=== PATIENT | male | born 1960 | race Caucasian/White ===

== ENCOUNTER 2017-03-28 02:41 | Emergency (ER) | payer OTHER ==
[2017-03-28] MEDS ORDERED: LORazepam INJ* 2 MG/ML 1 ML VIAL IM ONE (03:05)
[2017-03-28] MEDS ORDERED: Ketorolac INJ* 60 MG/2 ML VIAL IM ONE (03:05)
[2017-03-28] MEDS ORDERED: LORazepam TAB(*) 1 MG PO ONE (03:55)
--- NOTE | 2017-03-28 04:01 | ED ---
Eve Lamar Alfonso, scribed for Rolly Beltre MD on 03/28/17 at 0314 . Neck Pain - HPI Summary HPI Summary: This patient is a 56 year old male presenting to [facility] for a stiff neck since 1199 yesterday. He reports numb shoulders, a sore chest, and myalgia. He rates the pain 9/10 in severity. Symptoms aggravated by movement and not alleviated by Ibuprofen. He states the past day has been spent on a tractor and doing strenuous field work. - History of Current Complaint Chief Complaint: EDNeckComplaint Stated Complaint: ARMS NUMB Time Seen by Provider: 03/28/17 03:02 Hx Obtained From: Patient Onset/Duration Of Injury/Symptoms: Hours - Since 119903/27/2016 Timing: Constant Onset/Duration: Sudden Onset, Started hours ago - 119903/27/2017 Severity Initially: Severe Severity Currently: Severe Pain Intensity: 9 Pain Scale Used: 0-10 Numeric Aggravating Factors: Movement Alleviating Factors: Other: - Not alleviated by ibuprofen - Allergies/Home Medications Allergies/Adverse Reactions: Allergies Allergy/AdvReac Type Severity Reaction Status Date / Time No Known Allergies Allergy Verified 12/11/15 12:57 PMH/Surg Hx/FS Hx/Imm Hx Sensory History: Denies: Hx Deafness Opthamlomology History: Denies: Hx Legally Blind Infectious Disease History: Denies: History Other Infectious Disease, Traveled Outside the [place] in Last 30 Days - Family History Known Family History: Negative: Cardiac Disease - Social History Alcohol Use: None Alcohol Amount: none in 25 years Substance Use Type: Reports: None Smoking Status (MU): Heavy Every Day Tobacco Smoker Type: Cigarettes Amount Used/How Often: 1/2 ppd Review of Systems Negative: Fever Positive: Myalgia, Other - Positive stiff neck, sore chest Positive: Numbness - numb shoulders All Other Systems Reviewed And Are Negative: Yes Physical Exam Triage Information Reviewed: Yes Vital Signs On Initial Exam: Initial Vitals Temp Pulse Resp BP Pulse Ox 99.2 F 64 18 143/72 97 03/28/17 02:43 03/28/17 02:43 03/28/17 02:43 03/28/17 02:43 03/28/17 02:43 Vital Signs Reviewed: Yes Appearance: Positive: Well-Appearing, Pain Distress - mild discomfort Skin: Positive: Warm Head/Face: Positive: Normal Head/Face Inspection Eyes: Positive: JOANNA ENT: Positive: Hearing grossly normal Neck: Positive: Supple, Other: - moderate paracervical spasm Respiratory/Lung Sounds: Positive: Clear to Auscultation, Breath Sounds Present Cardiovascular: Positive: RRR Abdomen Description: Positive: Nontender, Soft Bowel Sounds: Positive: Present Musculoskeletal: Positive: Strength/ROM Intact Neurological: Positive: Sensory/Motor Intact, Alert, Oriented to Person Place, Time, Normal Gait Psychiatric: Positive: Affect/Mood Appropriate - [place] Coma Scale Coma Scale Total: 15 Diagnostics - Vital Signs Vital Signs Temp Pulse Resp BP Pulse Ox 03/28/17 02:52 100.3 F 53 20 137/68 98 03/28/17 02:43 99.2 F 64 18 143/72 97 - Laboratory Lab Statement: Any lab studies that have been ordered have been reviewed, and results considered in the medical decision making process. Re-Evaluation - Re-Evaluation First Eval Change: Improved Neck Course/Dx - Diagnoses Provider Diagnoses: Cervical paraspinal muscle spasm Discharge - Discharge Plan Condition: Improved Disposition: HOME Prescriptions: Cyclobenzaprine TAB* [Flexeril 10 MG TAB*] 10 mg PO TID #30 tab Patient Education Materials: Muscle Spasm (ED) Referrals: Gaurang Lazo PA [Primary Care Provider] - 1 Week The documentation as recorded by the Eve german Alfonso accurately reflects the service I personally performed and the decisions made by , Rolly Beltre MD.
[2017-03-28 05:28] VITALS: BP 133/64
== END 2017-03-28 09:53 | disposition home or self-care (01) ==
LOC: ED 02:41
DX: M62.838 Other muscle spasm (principal)
CPT/HCPCS: 96372; 99282; A9270-GY; J1885; J2060

== ENCOUNTER 2017-04-02 20:59 | Emergency (ER) | payer OTHER ==
[2017-04-02 21:11] VITALS: BP 110/58
--- NOTE | 2017-04-02 22:10 | RAD ---
Indication: Burning sensation in RIGHT shoulder for one week without preceding injury. Comparison: No relevant prior exams available on the [facility] PACS for comparison. Technique: Internal and external rotation AP and scapular Y views RIGHT shoulder Report: Normal acromioclavicular and glenohumeral joint alignment. Mild acromioclavicular joint and glenohumeral joint osteophytosis. Negative for significant glenohumeral joint space narrowing. Negative for fracture, stigmata of calcific tendinopathy, or abnormal soft tissue contour. IMPRESSION: Mild acromioclavicular and glenohumeral joint osteoarthritis.
--- NOTE | 2017-04-02 22:11 | RAD ---
Indication: Worsening thoracic spine pain without proceeding injury. Comparison: No relevant prior exams available on the [facility] [place] for [place]. Technique: Upright AP and lateral views thoracic spine. Report: Slight RIGHT convex curve at the mid thoracic spine below the threshold for scoliosis. Normal thoracic kyphosis. No fracture or focal osseous lesion evident. Minimal vertebral endplate osteophytosis without significant disc space narrowing. Unremarkable paraspinal soft tissue contours. IMPRESSION: Mild degenerative spondylosis.
--- NOTE | 2017-04-02 22:14 | RAD ---
Indication: Worsening cervical spine pain without proceeding injury. Comparison: June 14, 2011 CT Technique: AP, open-mouth odontoid, lateral, and oblique views cervical spine. Report: Normal alignment from the craniocervical junction through the cervicothoracic junction. Negative for fracture. Congenital versus chronic fragmentation of the tip of the spinous process of C7 without change. Advanced C5-C6 disc space narrowing with associated mild vertebral endplate osteophytosis and reactive endplate sclerosis. Multilevel mild facet joint osteoarthritis. Uncinate process spurring results in osseous foraminal stenosis at C5-C6 greater on the LEFT than the RIGHT. Unremarkable prevertebral soft tissue contours. IMPRESSION: Advanced C5-C6 degenerative spondylosis with worsening compared with the [address] CT. Associated uncinate process spurring and LEFT greater than RIGHT osseous foraminal stenosis.
--- NOTE | 2017-04-02 22:18 | RAD ---
Indication: Worsening RIGHT hip pain. No preceding injury. Comparison: No relevant prior exams available on the [facility] PACS for comparison. Technique: Weightbearing AP pelvis and AP and frog-leg lateral views RIGHT hip. Report: Normally located RIGHT hip. Negative for hip or pelvic fracture. Unremarkable sacroiliac joints and pubic symphysis. The RIGHT hip is remarkable for mild increased depth with the acetabular floor projecting medial to the ilioischial line as well as mild axial joint space narrowing and mild to moderate osteophytosis with associated partial loss of femoral head sphericity, 2 cm subchondral cyst at the medial femoral head, and acetabular roof and femoral head subchondral sclerosis. Less prominent osteoarthritis at the LEFT hip. Small bone island at the LEFT femoral neck. Unremarkable soft tissue contours. IMPRESSION: 1. Kellgren and Luke grade 3 osteoarthritis of the RIGHT hip. 2. Kellgren and Luke grade 2 osteoarthritis of the LEFT hip.
[2017-04-02] MEDS: HYDROcodone/ACETAMIN 5-325 MG* 1 TAB PO ONE (22:32)
--- NOTE | 2017-04-02 22:34 | UC ---
Minor Trauma HPI - HPI Summary HPI Summary: NECK PAIN, RIGHT SHOULDER, RIGHT HIP PAIN; NECK PAIN SAN RADIATES DOWN SHOULDERS AND MIDBACK. OCCASIONAL NUMBNESS TINGLING IN ARMS. HAS BEEN VERY ACTIVE, BOUNCING ON TRACTORS. NO FEVER. NO KNOWN TRAUAM. - History of Current Complaint Chief Complaint: UCBackPain Stated Complaint: BACK AND NECK PAIN Time Seen by Provider: 04/02/17 21:17 Hx Obtained From: Patient Onset/Duration: Gradual Onset, Lasting Weeks, Still Present Severity Initially: Moderate Severity Currently: Moderate Aggravating Factor(s): Movement Alleviating Factor(s): Nothing - Risk Factors Penetrating Injury Risk Factors: Negative - Allergies/Home Medications Allergies/Adverse Reactions: Allergies Allergy/AdvReac Type Severity Reaction Status Date / Time No Known Allergies Allergy Verified 04/02/17 21:11 Home Medications: Home Medications Acetaminophen TAB* [Tylenol TAB*] 975 mg PO PRN 04/02/17 [History] Cyclobenzaprine TAB* [Flexeril 10 MG TAB*] 10 mg PO TID PRN 04/02/17 [History Confirmed 04/02/17] Ibuprofen TAB* [Advil TAB*] 600 mg PO PRN 04/02/17 [History] Naproxen TAB* [Naprosyn 250 mg TAB*] 500 mg PO PRN 04/02/17 [History] PMH/Surg Hx/FS Hx/Imm Hx Previously Healthy: Yes - Surgical History Surgical History: Yes Surgery Procedure, Year, and Place: HYDROCELE, HERNIA REPAIR AT AGE 3 - Family History Known Family History: Positive: Other - NONCONTRIBUTORY Negative: Cardiac Disease - Social History Occupation: Employed Full-time Lives: With Family Alcohol Use: None Alcohol Amount: none in 25 years Substance Use Type: None Smoking Status (MU): Current Every Day Smoker Type: Cigarettes Amount Used/How Often: 4-5 CIG/DAY Review of Systems Constitutional: Negative Skin: Negative Eyes: Negative ENT: Negative Respiratory: Negative Cardiovascular: Negative Gastrointestinal: Negative Genitourinary: Negative Motor: Negative Neurovascular: Negative Musculoskeletal: Arthralgia, Myalgia Neurological: Paresthesia Psychological: Negative All Other Systems Reviewed And Are Negative: Yes Physical Exam Triage Information Reviewed: Yes Appearance: Well-Appearing, No Pain Distress, Well-Nourished Vital Signs: Initial Vital Signs Temp 97 F 04/02/17 21:05 Pulse 104 06/29/17 21:05 Resp 20 04/02/17 21:05 BP 110/58 04/02/17 21:05 Pulse Ox 96 04/02/17 21:05 Vital Signs Reviewed: Yes Eye Exam: Normal ENT Exam: Normal ENT: Positive: Normal ENT inspection, Hearing grossly normal, TMs normal Dental Exam: Normal Neck exam: Normal Neck: Positive: Supple, Nontender, No Lymphadenopathy Respiratory Exam: Normal Respiratory: Positive: Chest non-tender, Lungs clear, Normal breath sounds, No respiratory distress, No accessory muscle use Cardiovascular Exam: Normal Cardiovascular: Positive: RRR, No Murmur, Pulses Normal Abdominal Exam: Normal Musculoskeletal: Positive: Strength Intact, ROM Intact, No Edema, Other: - PAIN RIGHT HIP; CERVICAL SPINE. RIGHT SHOULDER Neurological Exam: Normal Neurological: Positive: Alert Psychological Exam: Normal Skin Exam: Normal Minor Trauma Course/Dx - Differential Dx/Diagnosis Differential Diagnosis/HQI/PQRI: Sprain, Strain Provider Diagnoses: CERICAL RADICULOPATHY; C5-C6 SPONDYLOSIS, T-SPINE DEGENERATIVE SPONDYLOSIS; RIGHT AC/GLENOHUMERAL JOINT ARTHRITIS; BILATERAL HIP OSTEOARTHRIAT Discharge - Discharge Plan Condition: Stable Disposition: HOME Prescriptions: HYDROcodone/ACETAMIN 5-325 MG* [Selby 5-325 TAB*] 1 tab PO Q8H PRN #15 tab MDD three tabs PRN Reason: Pain Metaxalone TAB* [Skelaxin TAB*] 800 mg PO TID #15 tab Patient Education Materials: Osteoarthritis (ED), Cervical Radiculopathy (ED), Degenerative Disc Disease (ED), Shoulder Pain (ED), Hip Pain (ED), Neck Pain (ED ) Referrals: Gaurang Lazo PA [Primary Care Provider] - Demian Munroe MD [Medical Doctor] - Km Craig MD [Medical Doctor] - Additional Instructions: PHYSICAL THERAPY REFERRAL: You have been prescribed physical therapy. Treatments may include stretching, exercise, application of heat or cold, and other modalities. After an injury, PT can reduce swelling and pain. In recovery, PT is used to restore mobility and strength. Your specific treatment goals are: Reduction of Swelling (EGS, US, ice as needed) __x___ Pain Reduction (EGS, US, ice as needed) __x___ TENS Pack Fitting and Instruction Wound Hydrotherapy ___x__ Preservation of Mobility ___x__ Alevism of Mobility ___x__ Strength Alevism ___x__ Work or Sports Hardening This instruction sheet also serves as your PHYSICAL THERAPY REFERRAL! Please take it with you to the therapist, so he/she will be aware of your diagnosis and treatment plan. You may see the physical therapist of your choice for these treatments, but may wish to check with your insurance to be sure the provider you select is covered. It's important to see the doctor to whom you have been referred for follow up.
== END 2017-04-02 22:34 | disposition home or self-care (01) ==
LOC: UCEAST 20:59
DX: M54.12 Radiculopathy, cervical region (principal); M47.892 Other spondylosis, cervical region; M47.894 Other spondylosis, thoracic region; M19.011 Primary osteoarthritis, right shoulder; M16.0 Bilateral primary osteoarthritis of hip; Z72.0 Tobacco use
CPT/HCPCS: 72050; 72070; 99212; G0463

== ENCOUNTER 2017-04-03 12:40 | Inpatient (IN) | payer OTHER ==
[2017-04-03] MEDS ORDERED: NS 0.9% 1000 ML* 1,000 ML IV ONE (13:13)
[2017-04-03] MEDS ORDERED: Aspirin TAB* 325 MG PO ONE (13:13)
[2017-04-03 13:25] LABS: Hematocrit 37 % (42-52); Hemoglobin 12.2 g/dl (14.0-18.0); Mean Corpuscular HGB Conc 33 g/dl (31-36); Mean Corpuscular Hemoglobin 31 pg (27-31); Mean Corpuscular Volume 95 fL (80-94); Mean Platelet Volume 9 um3 (7.4-10.4); Red Blood Count 3.94 10^6/ul (4.0-5.4); Red Cell Distribution Width 13 % (10.5-15)
[2017-04-03 13:28] LABS: Add Diff/Slide Review? Slide Review Added; Comments Flag Yes
[2017-04-03 13:41] LABS: Albumin 3.1 g/dL (3.2-5.2); BUN/Creatinine Ratio 31.4 (8-20); Calcium 8.9 mg/dL (8.6-10.3); EGFR Non-African American 115.8 (>60); Globulin 3.1 g/dL (2-4); Total Bilirubin 1.3 mg/dL (0.2-1.0); Total Protein 6.2 g/dL (6.4-8.9)
[2017-04-03 13:43] LABS: Troponin I 0.02 ng/mL (<0.04)
[2017-04-03] MEDS ORDERED: Iohexol 350* (CONTRAST) 500 ML MDV IV ONE ×2 (13:49→15:30)
[2017-04-03 13:58] LABS: HDL Cholesterol 24.2 mg/dL
--- NOTE | 2017-04-03 14:32 | RAD ---
HISTORY: Right-sided weakness, stroke COMPARISONS: June 14, 2011 TECHNIQUE: Multiple contiguous axial CT scans were obtained of the head without intravenous contrast. FINDINGS: HEMORRHAGE/INFARCT: There is no hemorrhage or acute infarct. MASSES/SHIFT: There is no mass or shift. EXTRA-AXIAL SPACES: There are no extra-axial fluid collections. SULCI AND VENTRICLES: The sulci and ventricles are normal in size and position for the patient's stated age. CEREBRUM: There are no focal parenchymal abnormalities. BRAINSTEM: There are no focal parenchymal abnormalities. CEREBELLUM: There are no focal parenchymal abnormalities. VESSELS: The vessels are grossly normal. PARANASAL SINUSES: The paranasal sinuses are clear. ORBITS: The orbits are unremarkable. BONES AND SOFT TISSUE: No bone or soft tissue abnormalities are noted. OTHER: None IMPRESSION: NO ACUTE INTRACRANIAL PATHOLOGY.
[2017-04-03] MEDS ORDERED: Morphine INJ* 4 MG/ML 1 ML SYRINGE IV ONE (14:40)
[2017-04-03] MEDS ORDERED: Diazepam TAB(*) 5 MG PO ONE (14:41)
--- NOTE | 2017-04-03 14:43 | RAD ---
HISTORY: Right-sided weakness, stroke COMPARISONS: Head CT dated April 03, 2017 TECHNIQUE: Multiple contiguous axial CT scans were obtained of the head and neck After the administration of nonionic intravenous contrast timed to the systemic arterial phase of contrast enhancement. Coronal and sagittal multiplanar reformations are submitted for review. Multiple 3-D maximum intensity projection reconstructions are also submitted for review. FINDINGS: CTA NECK: AORTIC ARCH: There is a normal three-vessel branching pattern of the aortic arch. There is no ostial or proximal stenosis of the cephalic great vessels. RIGHT VERTEBRAL ARTERY: The right vertebral artery is patent along its course, without stenosis. LEFT VERTEBRAL ARTERY: The left vertebral artery is patent along its course, without stenosis. DOMINANCE: The vertebral arteries are codominant. RIGHT COMMON CAROTID ARTERY: The right common carotid artery is patent. The right carotid bifurcation occurs at C5-C6 RIGHT INTERNAL CAROTID ARTERY: There is no right internal carotid artery stenosis by NASCET criteria. RIGHT EXTERNAL CAROTID ARTERY: The right external carotid artery is unremarkable. LEFT COMMON CAROTID ARTERY: The left common carotid artery is patent. The left carotid bifurcation occurs at C4-C5 LEFT INTERNAL CAROTID ARTERY: There is no left internal carotid artery stenosis by NASCET criteria. LEFT EXTERNAL CAROTID ARTERY: The left external carotid artery is unremarkable. VENOUS CIRCULATION: The venous system is unremarkable. SALIVARY GLANDS: The parotid glands, submandibular glands, sublingual glands are normal. NASAL CAVITY/NASOPHARYNX: The nasal cavity and nasopharynx are normal. ORAL CAVITY/OROPHARYNX: The oral cavity is obscured by streak artifact from dental amalgam. The visualized oral cavity and oropharynx are unremarkable. LARYNGEAL APPARATUS/HYPOPHARYNX: The laryngeal apparatus and hypopharynx are normal. UPPER AIRWAY/UPPER ESOPHAGUS: The visualized upper airway and esophagus are normal. LUNG APICES: There is focal pleural thickening along the right anterior chest. This is incompletely evaluated on the current examination. THYROID GLAND: The thyroid gland is normal. LYMPH NODES: There is no lymphadenopathy by size criteria. BONES AND SOFT TISSUES: Mild degenerative changes are noted. There is enlargement and hypoattenuation of the longus colli musculature bilaterally CTA HEAD: INTRACRANIAL CIRCULATION: There is no aneurysm, vascular malformation, occlusion, or stenosis of the visualized intracranial circulation. The anterior communicating artery complex is clear. Bilateral posterior communicating arteries are identified. VENOUS CIRCULATION: The venous system is unremarkable. PERFUSION: There is no obvious parenchymal perfusion deficit. HEMORRHAGE/INFARCT: There is no hemorrhage or acute infarct. MASSES/SHIFT: There is no mass or shift. EXTRA-AXIAL SPACES: There are no extra-axial fluid collections. SULCI AND VENTRICLES: The sulci and ventricles are normal in size and position for the patient's stated age. CEREBRUM: There are no focal parenchymal abnormalities. BRAINSTEM: There are no focal parenchymal abnormalities. CEREBELLUM: There are no focal parenchymal abnormalities. PARANASAL SINUSES: The paranasal sinuses are clear. ORBITS: The orbits are unremarkable. BONES AND SOFT TISSUE: No bone or soft tissue abnormalities are noted. OTHER: There is no abnormal enhancement. IMPRESSION: 1. NO ANEURYSM, VASCULAR MALFORMATION, OCCLUSION, OR STENOSIS OF THE VISUALIZED INTRACRANIAL CIRCULATION.. 2. NO INTERNAL CAROTID ARTERY STENOSIS BY NASCET CRITERIA. 3. THERE IS FOCAL PLEURAL THICKENING OF THE RIGHT ANTERIOR CHEST, WITH EDEMA AND ENLARGEMENT OF THE LONGUS COLI MUSCULATURE BILATERALLY. THIS IS OF UNCLEAR ETIOLOGY BUT IS INCOMPLETELY EVALUATED ON THE CURRENT EXAMINATION. RECOMMEND FURTHER EVALUATION WITH CT OF THE CHEST CPT II Codes: 3100F
[2017-04-03] MEDS ORDERED: Potassium Chlor TAB* 20 MEQ TAB.ER PO ONE (15:15)
[2017-04-03] MEDS ORDERED: Acetaminophen TAB* 325 MG PO PRN (15:15)
[2017-04-03] MEDS ORDERED: Ondansetron INJ* 2 MG/ML VIAL IV PRN (15:15)
[2017-04-03] MEDS ORDERED: HYDROcodone/ACETAMIN 5-325 MG* 1 TAB PO PRN (15:23)
[2017-04-03] MEDS ORDERED: Cyclobenzaprine TAB* 10 MG PO PRN (15:23)
[2017-04-03] MEDS ORDERED: NS 0.9% 1000 ML* 1,000 ML IV SCH (15:30)
[2017-04-03 15:41] LABS: C Reactive Protein 251.81 mg/L (< 5.00)
[2017-04-03] MEDS ORDERED: NS 0.9% 1000 ML* 2,000 ML IV ONE ×2 (15:49→18:37)
[2017-04-03] MEDS: KCL 10 MEQ/50 ML IVPREMIX* 10 MEQ/50 ML BAG IV SCH ×2 (15:56→22:17)
[2017-04-03] MEDS ORDERED: cefTRIAXone VIAL(*) 1,000 MG in NS 0.9% 50 ML* 50 ML IVPB SCH (16:00)
[2017-04-03] MEDS: Diltiazem TAB* 30 MG PO SCH (16:07)
[2017-04-03 16:23] LABS: TSH (Thyroid Stimulating Horm) 0.39 mcIU/mL (0.34-5.60)
--- NOTE | 2017-04-03 16:39 | RAD ---
INDICATION: Apical pleural thickening noted on CT neck of the same day. COMPARISON: April 03, 2017 CT angiogram neck. TECHNIQUE: Multidetector CT images were obtained from the lung apices to the upper abdomen. Evaluation of the viscera is limited without IV contrast. REPORT: Mild bilateral apical pleural-parenchymal scarring. Small dependent RIGHT and trace LEFT pleural effusions with proportional atelectasis. No suspicious focal pulmonary lesions. Negative for pneumothorax. Negative for thoracic lymphadenopathy. Negative for cardiomegaly. Physiologic small volume of pericardial fluid. Normal diameter thoracic aorta. Limited images through the upper abdomen are remarkable for symmetric pyelographic phase contrast at the kidneys from the CT angiogram performed earlier the same day. At the level of the RIGHT first intercostal space anteriorly there is soft tissue thickening and innumerable punctate gas bubbles suspicious for myositis. No gross osseous erosion of the adjacent first or second ribs or clavicle evident. As noted on the CT angiogram neck exam of the same date there is thickening and decreased density in the longest coli muscles anterior to the cervical spine. No gross loculated abscess collection evident. IMPRESSION: 1. The constellation of findings is concerning for myositis at the RIGHT first intercostal space anteriorly. This may represent contiguous inflammation with the deep soft tissues of the neck given appearance of the longus coli muscles reference the CT angiogram neck exam performed prior to this exam. 2. Small dependent RIGHT and trace LEFT pleural effusions with associated atelectasis. Results discussed with Dr. Vieyra 04/03/2017 4:35 PM EDT
--- NOTE | 2017-04-03 16:58 | ED ---
Lon Lamar Alok, scribed for Juancarlos Vieyra MD on 04/03/17 at 1330 . Neurological HPI - HPI Summary HPI Summary: 56M presents at the ED (last here 3 days ago) with right sided weakness sent here from his PCP. Pt had new onset of A-fib at PCP. Pt was last seen at last night for right shoulder, right hip, neck and back pain. Pt had XRAYS done at which revealed osteoarthritis of those body parts. Pt presents today with inability to move his right leg accompanied by right leg and right arm numbness/ tingling. Pt states he has had right sided weakness for the last two days, worsening since this morning. Pt is right hand dominant. Pt notes some slurred speech appreciated as well as difficulty urinating. Pt notes neck pain but denies back pain. Pt denies SPARKS or visual loss. Pt also notes lack of sleep recently. Pt smokes tobacco but denies ETOH use. FMHx includes brother with stroke at age 35. - History of Current Complaint Chief Complaint: EDDysrhythmPalp Stated Complaint: WEAKNESS Time Seen by Provider: 04/03/17 12:48 Hx Obtained From: Patient, Medical Records Onset/Duration: Started days ago, Still Present, Worse Since - This morning Timing: Constant Onset Severity: Moderate Current Severity: Moderate Neurological Deficit Location: RUE, RLE Character: Numbness/Tingling, Motor Weakness, Impaired Speech Aggravating: Sleep Deprivation Alleviating: Nothing Associated Signs and Symptoms: Positive: Weakness, Impaired Speech, Numbness, Neck Pain/Stiffness. Negative: Visual Changes, Headache - Allergy/Home Medications Allergies/Adverse Reactions: Allergies Allergy/AdvReac Type Severity Reaction Status Date / Time No Known Allergies Allergy Verified 04/02/17 21:11 PMH/Surg Hx/FS Hx/Imm Hx Endocrine/Hematology History: Denies: Hx Diabetes Cardiovascular History: Denies: Hx Coronary Artery Disease, Hx Hypertension Sensory History: Denies: Hx Legally Blind, Hx Deafness Opthamlomology History: Denies: Hx Legally Blind - Surgical History Surgery Procedure, Year, and Place: HYDROCELE, HERNIA REPAIR AT AGE 3 Infectious Disease History: Denies: History Other Infectious Disease, Traveled Outside the [place] in Last 30 Days - Family History Known Family History: Positive: Other - NONCONTRIBUTORY Negative: Cardiac Disease - Social History Lives: With Family Alcohol Use: None Alcohol Amount: none in 25 years Substance Use Type: Reports: None Smoking Status (MU): Current Every Day Smoker Type: Cigarettes Amount Used/How Often: 4-5 CIG/DAY Review of Systems Negative: Blurred Vision Genitourinary: Other - Difficulty urinating Positive: Decreased ROM, Other - Neck pain. Negative: Back pain Positive: Weakness, Numbness, Slurred Speech. Negative: Headache All Other Systems Reviewed And Are Negative: Yes Physical Exam - Summary Physical Exam Summary: The patient is well-nourished in no acute distress and in no acute pain. The skin is warm and dry and skin color reflects adequate perfusion. HEENT: The head is normocephalic and atraumatic. The pupils are equal and reactive. Extraocular muscles intact. No facial droop. The conjunctivae are clear and without drainage. Nares are patent and without drainage. Mouth reveals moist mucous membranes and the throat is without erythema and exudate. The external ears are intact. The ear canals are patent and without drainage. The tympanic membranes are intact. Neck: Reproducible cervical spine tenderness at C5-C6. There are no carotid bruits. There is no neck vein distension. Respiratory: Chest is non-tender. Lungs are clear to auscultation and breath sounds are symmetrical and equal. Cardiovascular: Hear is irregular and tachycardic. There is no murmur or rub auscultated. There is no peripheral edema and pulses are symmetrical and equal. Abdomen: The abdomen is soft and non-tender. There are normal bowel sounds heard in all four quadrants and there is no organomegaly palpated. Musculoskeletal: Reproducible cervical spine tenderness at C5-C6. Extremities are non-tender with full range of motion. There is good capillary refill. There is no peripheral edema or calf tenderness elicited. Neurological: CN II-IV intact. No facial droop. No pronator drift right lower extremity or right upper extremity. Finger to nose good on both sides. Left lower extremity pronator drift. 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 Motor weakness appreciated in right upper extremity. No sensory deficit appreciated. No right lower extremity weakness apparent. Psychiatric: The patient has an appropriate affect and does not exhibit any anxiety or depression. Triage Information Reviewed: Yes Vital Signs On Initial Exam: The patient is well-nourished in no acute distress and in no acute pain. The skin is warm and dry and skin color reflects adequate perfusion. HEENT: The head is normocephalic and atraumatic. The pupils are equal and reactive. The conjunctivae are clear and without drainage. Nares are patent and without drainage. Mouth reveals moist mucous membranes and the throat is without erythema and exudate. The external ears are intact. The ear canals are patent and without drainage. The tympanic membranes are intact. Neck is supple with full range of motion and non-tender. There are no carotid bruits. There is no neck vein distension. Respiratory: Chest is non-tender. Lungs are clear to auscultation and breath sounds are symmetrical and equal. Cardiovascular: Hear is regular rate and rhythm. There is no murmur or rub auscultated. There is no peripheral edema and pulses are symmetrical and equal. Abdomen: The abdomen is soft and non-tender. There are normal bowel sounds heard in all four quadrants and there is no organomegaly palpated. Musculoskeletal: There is no back pain noted. Extremities are non-tender with full range of motion. There is good capillary refill. There is no peripheral edema or calf tenderness elicited. Neurological: Patient is alert and oriented to person, place and time. The patient has symmetrical motor strength in all four extremities. Cranial nerves are grossly intact. Deep tendon reflexes are symmetrical and equal in all four extremities. Psychiatric: The patient has an appropriate affect and does not exhibit any anxiety or depression. Vital Signs Reviewed: Yes Diagnostics - Vital Signs Vital Signs Pulse Resp Pulse Ox 04/03/17 14:50 18 04/03/17 14:19 96 18 94 04/03/17 13:25 96 04/03/17 13:11 21 - Laboratory Lab Results: Lab Results 04/03/17 04/03/17 04/03/17 Range/Units 13:15 13:15 13:15 WBC 14.0 H (3.5-10.8) 10^3/ul RBC 3.94 L (4.0-5.4) 10^6/ul Hgb 12.2 L (14.0-18.0) g/dl Hct 37 L (42-52) % MCV 95 H (80-94) fL MCH 31 (27-31) pg MCHC 33 (31-36) g/dl RDW 13 (10.5-15) % Plt Count 197 (150-450) 10^3/ul MPV 9 (7.4-10.4) um3 Neut % (Auto) 74.8 (38-83) % Lymph % (Auto) 12.2 L (25-47) % [place] % (Auto) 12.0 H (1-9) % Eos % (Auto) 0.8 (0-6) % Baso % (Auto) 0.2 (0-2) % Absolute Neuts (auto) 10.5 H (1.5-7.7) 10^3/ul Absolute Lymphs (auto) 1.7 (1.0-4.8) 10^3/ul Absolute Monos (auto) 1.7 H (0-0.8) 10^3/ul Absolute Eos (auto) 0.1 (0-0.6) 10^3/ul Absolute Basos (auto) 0 (0-0.2) 10^3/ul Absolute Nucleated RBC 0 10^3/ul Nucleated RBC % 0 ESR Pending INR (Anticoag Therapy) 1.48 H (0.89-1.11) Sodium 136 (133-145) mmol/L Potassium 3.0 L (3.5-5.0) mmol/L Chloride 95 L (101-111) mmol/L Carbon Dioxide 35 H (22-32) mmol/L Anion Gap 6 (2-11) mmol/L BUN 22 (6-24) mg/dL Creatinine 0.70 (0.67-1.17) mg/dL Est GFR ( Amer) 149.0 (>60) Est GFR (Non-Af Amer) 115.8 (>60) BUN/Creatinine Ratio 31.4 H (8-20) Glucose 112 H (70-100) mg/dL Lactic Acid (0.5-2.0) mmol/L Calcium 8.9 (8.6-10.3) mg/dL Magnesium 2.0 (1.9-2.7) mg/dL Total Bilirubin 1.30 H (0.2-1.0) mg/dL AST 84 H (13-39) U/L ALT 132 H (7-52) U/L Alkaline Phosphatase 230 H (34-104) U/L Troponin I 0.02 (<0.04) ng/mL C-Reactive Protein 251.81 H (< 5.00) mg/L Total Protein 6.2 L (6.4-8.9) g/dL Albumin 3.1 L (3.2-5.2) g/dL Globulin 3.1 (2-4) g/dL Albumin/Globulin Ratio 1.0 (1-3) Triglycerides 134 mg/dL Cholesterol 120 mg/dL LDL Cholesterol 69 mg/dL HDL Cholesterol 24.2 mg/dL TSH 0.39 (0.34-5.60) mcIU/mL 04/03/17 Range/Units 13:15 WBC (3.5-10.8) 10^3/ul RBC (4.0-5.4) 10^6/ul Hgb (14.0-18.0) g/dl Hct (42-52) % MCV (80-94) fL MCH (27-31) pg MCHC (31-36) g/dl RDW (10.5-15) % Plt Count (150-450) 10^3/ul MPV (7.4-10.4) um3 Neut % (Auto) (38-83) % Lymph % (Auto) (25-47) % [place] % (Auto) (1-9) % Eos % (Auto) (0-6) % Baso % (Auto) (0-2) % Absolute Neuts (auto) (1.5-7.7) 10^3/ul Absolute Lymphs (auto) (1.0-4.8) 10^3/ul Absolute Monos (auto) (0-0.8) 10^3/ul Absolute Eos (auto) (0-0.6) 10^3/ul Absolute Basos (auto) (0-0.2) 10^3/ul Absolute Nucleated RBC 10^3/ul Nucleated RBC % ESR INR (Anticoag Therapy) (0.89-1.11) Sodium (133-145) mmol/L Potassium (3.5-5.0) mmol/L Chloride (101-111) mmol/L Carbon Dioxide (22-32) mmol/L Anion Gap (2-11) mmol/L BUN (6-24) mg/dL Creatinine (0.67-1.17) mg/dL Est GFR ( Amer) (>60) Est GFR (Non-Af Amer) (>60) BUN/Creatinine Ratio (8-20) Glucose (70-100) mg/dL Lactic Acid 1.2 (0.5-2.0) mmol/L Calcium (8.6-10.3) mg/dL Magnesium (1.9-2.7) mg/dL Total Bilirubin (0.2-1.0) mg/dL AST (13-39) U/L ALT (7-52) U/L Alkaline Phosphatase (34-104) U/L Troponin I (<0.04) ng/mL C-Reactive Protein (< 5.00) mg/L Total Protein (6.4-8.9) g/dL Albumin (3.2-5.2) g/dL Globulin (2-4) g/dL Albumin/Globulin Ratio (1-3) Triglycerides mg/dL Cholesterol mg/dL LDL Cholesterol mg/dL HDL Cholesterol mg/dL TSH (0.34-5.60) mcIU/mL Result Diagrams: 04/03/17 13:15 04/03/17 13:15 Lab Statement: Any lab studies that have been ordered have been reviewed, and results considered in the medical decision making process. - Radiology Head CTA Xray Interpretation: Positive (See Comments) Radiology Interpretation Completed By: Radiologist - CT Brain CT CT Interpretation: Positive (See Comments) - IMPRESSION: NO ACUTE INTRACRANIAL PATHOLOGY. CT Interpretation Completed By: Radiologist - EKG 1243 Cardiac Rate: Other Rate - 92 bpm EKG Rhythm: Atrial Fibrillation ST Segment: Non-Specific - changes NIH Scale - NIH Scale Level of Consciousness: Alert/Keenly Responsive Ask Patient the Month and His/Her Age: Both Correct Ask Pt to Open/Close Eyes and Command Center Officer/Release Non-Paretic Hand: Both Correctly Best Gaze (Only Horizontal Eye Movement): Normal Visual Field Testing: No Visual Loss Facial Paresis-Pt to Smile & Close Eyes or Grimace Symmetry: Normal/Symmetrical Motor Function - Right Arm: No Drift-Holds 10 Seconds Motor Function - Left Arm: No Drift-Holds 10 Seconds Motor Function - Right Leg: Effort Against [place] Motor Function - Left Leg: No Drift-Holds 10 Seconds Limb Ataxia-Must be out of Proportion to Weakness Present: Present in One Limb Sensory (Use Pinprick to Test Arms/Legs/Trunk/Face): Normal Best Language (Describe Picture, Name Items): No Aphasia Dysarthria (Read Several Words): Slurs Some Words Extinction and Inattention: No Abnormality Total Score: 4 Course/Dx - Course Course Of Treatment: Spoke with Dr. Evans and RN INTERNSHIP Christiano Multani who will admit pt to [facility]. - Differential Dx Differential Diagnoses Neuro: Positive: Cerebrovascular Accident, Coronary Artery Disease, Dysrhythmia, Viral Syndrome, Other - infection, myositis - Diagnoses Provider Diagnoses: Right sided weakness, CVA (cerebral vascular accident), Radiculopathy, New onset atrial fibrillation - Physician Notifications Discussed Care Of Patient With: Justine Chung - Will admit pt to [facility] Time Discussed With Above Provider: 14:46 - Critical Care Time Critical Care Time: 30-74 min - 30 minutes Discharge - Discharge Plan Condition: Stable Disposition: ADMITTED TO [facility] documentation as recorded by the Lon german Alok accurately reflects the service I personally performed and the decisions made by me, Juancarlos Vierya MD.
[2017-04-03] MEDS ORDERED: Vancomycin(*) 1,250 MG in NS 0.9% 250 ML* 250 ML IVPB ONE (17:00)
--- NOTE | 2017-04-03 17:00 | RAD ---
Indication: Atrial fibrillation. Comparison: April 03, 2017 CT chest Technique: Upright AP 1523 hours Report: Mild increased density in the medial RIGHT upper lung zone corresponds with the region of soft tissue swelling noted at the RIGHT first intercostal space on CT. RIGHT apical pleural thickening. Clear lateral costophrenic angles with effusions noted on CT below threshold for detection on portable chest radiograph. Negative for pneumothorax or pneumomediastinum. Negative for cardiomegaly. Unremarkable central pulmonary vasculature. IMPRESSION: Mild increased density in the medial RIGHT upper lung zone corresponds with the region of soft tissue swelling noted at the RIGHT first intercostal space on CT. RIGHT apical pleural thickening
--- NOTE | 2017-04-03 17:03 | RAD ---
Indication: Elevated LFTs Comparison: Chest CT of the same date. Technique: RIGHT upper quadrant ultrasound. Report: Small RIGHT pleural effusion noted. Appropriate direction flow documented in the portal and hepatic veins. 23 cm liver is normal in echogenicity. Negative for focal hepatic lesions. Negative for intrahepatic biliary dilatation. 3.7 mm common bile duct. Adequately distended gallbladder with normal 2 mm wall is without pathologic finding. Negative for sonographic Flores's sign. The pancreatic tail is partially obscured due to bowel gas with the visualized pancreas unremarkable. Negative for ascites. 12.4 cm RIGHT kidney is unremarkable. IMPRESSION: 1. Small RIGHT pleural effusion. 2. Mild hepatomegaly. 3. Negative for gallbladder pathology or biliary dilatation.
[2017-04-03 18:37] LABS: Erythrocyte Sed Rate 65 mm/Hr (0-20)
[2017-04-03 19:09] LABS: Urine Bacteria Absent (Absent); Urine Bilirubin Negative (Negative); Urine Glucose Negative (Negative); Urine Nitrite Positive (Negative)
--- NOTE | 2017-04-03 21:34 | RAD ---
Indication: RIGHT side weakness. 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 Unable to feel RIGHT leg and foot. Comparison: No relevant prior exams available on the [facility] PACS for comparison. Technique: [employer] [place] 1.5 No [id number] with GEM suite. MRI brain without contrast. Report: Metallic artifact from a small metallic fragment in the frontal scalp noted. Diffusion series is negative for acute or subacute ischemia. Susceptibility series is negative for stigmata of hemosiderin deposition to indicate previous hemorrhage. Unremarkable cerebral sulci, ventricles, and basal cisterns. Mild burden of nonspecific small T2/flair hyperintensities within the periventricular and subcortical white matter of the cerebral hemispheres. Negative for intra or extra-axial fluid collection or mass lesion. Preserved major intracranial flow voids. Unremarkable orbital contents. Probable physiologic RIGHT unilateral nasal cavity mucosal engorgement. Negative for paranasal sinus fluid levels. Clear mastoid air spaces. Unremarkable calvarium and skull base. Unremarkable scalp. IMPRESSION: 1. Low burden of small nonspecific T2/flair hyperintensities within the periventricular and subcortical white matter of the cerebral hemispheres which may be seen in setting of migraine headaches or reflect sequela of previous inflammation or demyelinating disease in the appropriate clinical setting. 2. Negative for abnormal intra or extra-axial fluid collection or mass effect. 3. Negative for acute or subacute ischemia. Results discussed with KARO Multani 04/03/2017 9:20 PM EDT
[2017-04-03 21:45] VITALS: BP 123/57
--- NOTE | 2017-04-03 21:50 | RAD ---
Indication: Neck pain. Comparison: CPT angiogram neck of the same date. MRI brain of the same date. Chest CT of the same date. Technique: [employer] 1.5 No [id number] with GEM suite. Noncontrast MRI cervical spine limited to sagittal IR, sagittal T2, sagittal T1 series. The patient refused further MRI imaging due to normal is and discomfort. Report: There is T2 hyperintensity along the course of the longus colli muscles bilaterally corresponding with prior CT finding extending from the level of the C2-C3 disc space into the mediastinum at the caudal margin of the [id number] at the T2-T3 level. There is T2/ inversion recovery marrow edema with partial loss of T1 hyperintensity at C5, C6, and C7 highly suspicious for osteomyelitis given the clinical context. There is marked narrowing of the C5-C6 disc space with hyperintensity concerning for discitis. There is abnormal posterior vertebral epidural heterogeneously T2 / inversion recovery hyperintense thickening of the epidural space extending from C4 through C6 concerning for epidural abscess. There is resulting compression of the spinal cord with the cord measuring 5 mm AP at the C5 level compared with 7 mm at the unaffected C3 level. Resulting complete effacement of the ventral and dorsal CSF space. Smaller inflammatory epidural collection posteriorly. In the region of spinal cord compression there is increased signal within the cervical spinal cord extending from C4 through C6. There is increased signal in the interspinous ligaments from C2-C3 through T1-T2. IMPRESSION: 1. 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 Associated increased T2 signal within the cord which may be secondary to compression or reflect contiguous infection involving the cord. Contiguous inflammation within the interspinous ligaments from C2-C3 through T1-T2. 2. No pathologic fracture evident. 3. Based on correlation with the CT chest exam of the same date there is contiguous extension of the inflammatory process to the RIGHT anterior chest wall with phlegmon and gas bubbles at the RIGHT first intercostal space. Results discussed with KARO Multani 04/03/2017 9:20 PM EDT. Emergent neurosurgical consultation/facility transfer planned.
[2017-04-03] MEDS ORDERED: KCL premix 10MEQ/50 ML x 2 BAGS IV SCH (22:00)
--- NOTE | 2017-04-03 22:50 | CONS ---
CC: AMOR Duggan NEUROLOGY CONSULTATION REPORT: DATE OF CONSULT: 04/03/17 REQUESTING PROVIDER: Christiano Multani NP PRIMARY CARE PROVIDER: AMOR Duggan REASON FOR CONSULT: Right-sided weakness, possibly stroke. HISTORY OF PRESENT ILLNESS: The patient is a 56-year-old right-handed male, started to have experiencing pain in the neck and shoulder about a week ago. He came to the ED on 03/28/17 with a chief complaint of stiff neck and pain in the shoulder, as well as some tenderness in the chest and myalgia. 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 As there was nothing significantly found in the exam, he was diagnosed with cervical paraspinal muscle spasm and was sent home with Flexeril. He had another ED visit on the 02 of April with pain in the right shoulder, head and neck and some numbness in the hands. He reports having fever in the past few days as well, but di not actually measure his temperature at home. He had an imaging of the neck spine during that visit which showed some degenerative changes and C5-C6 spondylosis. Based on those findings, he was sent home with Artemas. Since about Thursday night he started to feel weak in the right arm and leg, and also appeared to have a bit of slurred speech per his . He came to the ED today and was found to have a new-onset AFib. Then neurology was called because of concern of acute stroke in the setting of Afib. PAST MEDICAL HISTORY: No significant past medical history. PAST SURGICAL HISTORY: History of hernia repair in childhood and also history of hydrocele. HOME MEDICATIONS: He does not use any medication regularly other than the Artemas and Flexeril that were given to him in the past week. ALLERGIES: No known drug allergies. FAMILY HISTORY: Father has history of coronary artery disease and diabetes. Mother also had no history of neurological disorder. Brother has history of stroke at age 35. SOCIAL HISTORY: He is a heavy smoker, smoking half a pack per day for many years. No history of alcohol or drugs. The patient is a eagle. REVIEW OF SYSTEMS: Complete review of systems was performed and other than what is mentioned above is positive for difficulty with urination (hesitation) in the past few day PHYSICAL EXAM: Blood pressure is 136/84, temperature 100, respiratory rate 18, and pulse rate 84. The patient is awake, alert, and oriented x3. Pupils are symmetric and reactive to light. Extraocular movements are intact. Visual mann are intact by confrontation. Face is symmetric. Palate elevates upwards. V1 to V3 is intact to light touch and pinprick. Speech is fluent and intelligible. No clear dysarthria noted; however, the patient's thinks that he is slightly dysarthric. The strength is 5/5 throughout other than the right arm which is 4/5 proximally and distally, and leg also 4/5 in the right proximal, and distal is 5/5. Sensory exam is intact to light touch and pinprick in the upper and lower extremities and is symmetric, and decreased to vibration bilaterally in the lower extremities below the knees. There is no clear sensory level in trunk. Deep tendon reflexes are 1+ in the left upper extremity on the left side and not detectable on the right and is 3+ in the knees bilaterally. DIAGNOSTIC STUDIES/LAB DATA: WBC 14, hemoglobin 12.2, hematocrit 37, platelets 197. Sodium 136, potassium 3, BUN 22, and creatinine is 0.7. AST 84, ALT 32. INR 1.48. Imaging: A CT of the head shows no intracranial pathology. A CTA of the head shows no areas of vascular malformation, occlusion, or stenosis. No internal carotid artery stenosis. There is focal pleural thickening of the right anterior chest with edema and enlargement of the longus colli musculature bilaterally. This is of unclear etiology, but this is incompletely evaluated on the current examination. A CT chest is recommended. X-ray of the hip and pelvis shows osteoarthritis of the right and left hip. A cervical spine x-ray showed advanced C5-C6 degenerative spondylosis with worsening compared with [address] CT. ASSESSMENT AND PLAN: A 56-year-old right-handed male with history of neck pain and muscle pain since last week, with reportedly fever, presented with worsening of his symptoms and now with right-sided weakness since about 2 days ago. The mentions that he also has slurred speech. At this point, probably he may have sustained a lacunar (internal capsule?) stroke; however, the etiology of his stroke is unclear. Considering the fever and white blood cells, he may have a source of infection such as endocarditis with septic emboli. Other sources of infection need to be investigated. He needs an MRI of the brain and C-spine considering the pain in the shoulder ; however, since he has received a CT angiogram with contrast, cannot have the MRI with contrast and will further proceed with MRI of the brain without contrast. If that is unremarkable, may consider an LP at some point. [id number]/CPS #: [id number] MTDD
--- NOTE | 2017-04-03 23:06 | HP ---
CC: SISSY Koenig; Dr. Falcon; Dr. Parrish; Dr. Hua HISTORY AND PHYSICAL: DATE OF ADMISSION: 04/03/17 PRIMARY CARE PROVIDER: SISSY Koenig. CONSULTING NEUROLOGIST: Dr. Falcon. CONSULTING SCHEDULING CLERK: Dr. Parrish. CONSULTING INFECTIOUS DISEASE SPECIALIST: Dr. Hua. ATTENDING PHYSICIAN WHILE IN THE HOSPITAL: Justine Chung DO (report is being dictated by Christiano putnam NP) CHIEF COMPLAINT: Neck pain. HISTORY OF PRESENT ILLNESS: Mr. Shaw is a 56-year-old male patient, previously healthy; however, o keyla the last week, he has had neck pain, starting in the right side of his neck into his right chest and also having some numbness to bilateral arms. He says the pain has gotten progressively worse t o the point where last Thursday he did go to the ER and was given muscle relaxants. 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 The Flexeril seemed to work well for him, he was discharged. Unfortunately, the pain progressed. He said he went to urgent care yesterd ay and today it was noticed that his arms were much more weak, particularly his right arm and his ri ght leg and there was question of slurred speech. While at the primary care office today, it was no christina per the patient that his heart rate was irregular. He denies any palpitations or chest pain. T here is question of fevers off and on throughout the last week, but it were unsure. He does admit t o having again pain in his neck and he does admit to having pain in his right hip. He came into the ER after being referred here because of the new onset AFib for further evaluation. He currently ag ain denies having any chest pain, denies feeling short of breath, denies having any abdominal pain. He says that he may have had fevers, denies any nausea or vomiting, but he definitely knows his rig ht hand is weaker than his left hand and he also has right leg weakness. The and the patient rajeev dominguez noticed he has been dragging his right leg. He was concerned obviously because of these finding s. He was evaluated by Dr. Sewell here in the ER. There was concern for possible CVA, new onset AF ib, in addition to this it was noted he had elevated white count, elevated LFTs. Because of these m ultiple findings, we were asked to evaluate for admission. PAST MEDICAL HISTORY: Was denied with the exception of acute cervical radiculopathy, which was rece ntly diagnosed just a week ago. PAST SURGICAL HISTORY: 1. He has had a hernia repair. 2. He has had a hydrocele. FAMILY HISTORY: His brother had a CVA at 35. His mother had a history of leukemia and his father i s healthy. SOCIAL HISTORY: He was about a half a pack a day smoker for 40 years. He does not drink alcohol. He is a eagle. Surrogate decision maker is his , Yarely. ALLERGIES TO MEDICATIONS: Include no known drug allergies. MEDICATIONS: His home meds include: 1. Naproxen 500 mg p.o. b.i.d. as needed. 2. Skelaxin 800 mg p.o. t.i.d. 3. Ibuprofen 600 mg every 6 hours as needed. 4. [place] 1 tablet p.o. every 8 hours as needed. 5. Flexeril 10 mg p.o. t.i.d. 6. Tylenol 975 every 6 hours as needed. REVIEW OF SYSTEMS: There is no documented fever with the exception here he did have one over 100, h e does admit subjectively having fevers. He denies having any chest pain. There is no orthopnea. There is no nocturnal dyspnea. He denies having any double vision. There is no ear discharge. He denied having any rhinorrhea. No sore throat. No thyroid enlargement. No abdominal pain. No naus ea, no vomiting. No dysuria, no frequency. No seizure. There was no loss of consciousness. Revie w of 14 systems completed, all others negative. PHYSICAL EXAMINATION GENERAL: At this time, Mr. Shaw is a 56-year-old male patient. He appears to be well nourished, w ell developed. He does not appear to be in any acute distress. VITAL SIGNS: Reveal blood pressure 136/84, pulse 84, respirations 18, O2 sat 94% on room air, and t emperature of 100. HEENT: Head is atraumatic and normocephalic. Eyes: EOMs are intact. Sclerae are anicteric and no t pale. Throat: Oral mucosa appears to be moist. No oropharyngeal erythema. NECK: Supple. LUNGS: Clear to auscultation bilaterally. No wheezes, rales, or rhonchi. HEART: Heart sounds S1 and S2. Irregularly irregular rate. No murmurs, rubs or gallops. ABDOMEN: Soft, flat, nontender. Bowel sounds are present. EXTREMITIES: Pulses 2+ throughout. He has significant weakness noted to the right upper extremity, right lower extremity compared to the left side. NEUROLOGIC: He is awake. He is alert. Speech according to the is slurred, it sounds clear t o me. He has no trouble with word finding. 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 He is unable to lift the leg off the bed at this point, but he has no pain with passive range of motion. Spine was palpated and he has no cervical spine tenderness or lumbar spine tenderness or thoracic spine tenderness. No other gross focal deficits were noted. No facial droop . SKIN: Grossly intact. DIAGNOSTIC STUDIES/LAB DATA: Labs today revealed WBC of 14.0, RBC of 3.94, hemoglobin 12.2, hemato crit of 37, platelet count 197. INR 1.48. Sodium was 136, potassium 3.6, chloride 95, bicarb 35, B UN 22, creatinine of 0.70, glucose 112, lactic 1.2, calcium 8.9, mag 2.0. Total bili 1.3, AST 84, A LT 132, alk phos 230. Troponin 0.02. CRP 251. Albumin of 3.1. He did have a brain CT obtained today, which revealed no acute intracranial pathology. He did have a head CTA and of the neck as well, which revealed, impression: No aneurysm, vascular malformation, occlusion, or stenosis of the visualized intracranial circulation, no internal carotid artery steno sis by NASCET criteria. There is focal pleural thickening on the right anterior chest with edema, e nlargement in the longus colli musculature bilaterally. This is unclear etiology, but is incomplete ly evaluated on the current examination. He had an EKG obtained today as well, I do not have previo us for comparison, but it does show atrial fibrillation with ST depression in V4, V5 and V3 as well, but again no previous for comparison, has an AFib with a rate of 92. Old medical records were revi ewed. ASSESSMENT AND PLAN: Mr. Shaw is a 56-year-old male patient coming into the ER today with multiple complaints, particularly neck pain, shoulder pain and now right- sided weakness and slurring of the words, and new onset atrial fibrillation. He will be admitted under inpatient status for: 1. Atrial fibrillation. At this point, it is rate controlled. I am going to put him on diltiazem 30 every 6 hours with hold parameters and I am going to hold off on anticoagulation for the time bowen agustin. 2. Right-sided weakness: Concern for possible cerebrovascular accident; however, it could be a cer vical radiculopathy. I did touch base with Dr. Falcon. Plan will be go ahead and continue an baby aspirin for now, get an echo with bubble study, go ahead and get neuro checks, place him on telemet ry, we will get an MRI of the brain and of the neck. 3. Elevated white cell count, pleural thickening, and elevated C-reactive protein. The etiology of this is unclear. I did touch base with Dr. Hua. The patient's CRP is 250. He has a low grade fever now of 100. We are going to kang culture him, put him on broad-spectrum antibiotics in the fo rm of Rocephin and vancomycin, get a CT of the chest as certainly he could have endocarditis and may be having septic emboli causing these focal findings. But at this point, again we will get in touc h with Dr. Hua. We will be evaluating him, we will kang culture the patient and we will continu e to monitor. 4. Elevated liver function tests, Again, uncertain etiology. The patient says he does not drink. I am going to get an ultrasound of upper quadrant and we will repeat his LFTs in the morning and we will follow. 5. Neck pain. At this point, I have ordered p.r.n. Flexeril for him as this has helped in the past . 6. Hypokalemia. We will replace this. 7. DVT prophylaxis: He will be placed on heparin subcu. 8. Code status: He is full code. 9. Fluids, electrolytes, and nutrition. He is n.p.o. because I did touch base with Dr. Silverio to s ee if maybe we could do a biopsy of this pleural thickening or of the musculature that has the edema to see if this can help our diagnostic process. He is n.p.o. for the time being. I will give him 2 L of fluid though and the normal saline at 100 an hour. TIME SPENT: Time spent on the admission was approximately 90 minutes, greater than half the time wa s spent [id number] with the patient obtaining my history and physical; other half of the time was spent going over the plan of care with the patient and implementing the plan of care. I did discuss the plan of care with my attending, Dr. Chung; she is in agreement. CHRISTIANO DICKEY, KARO [id number]/[facility] #: [id number]
[2017-04-04] MEDS: Diltiazem TAB* 30 MG PO SCH (00:01)
[2017-04-04] MEDS: KCL 10 MEQ/50 ML IVPREMIX* 10 MEQ/50 ML BAG IV SCH ×2 (00:02→00:03)
--- NOTE | 2017-04-04 00:36 | TRS ---
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 HISTORY OF PRESENT ILLNESS AND HOSPITAL COURSE: I refer you to my H and P dictated earlier today. In short, Mr. Shaw is a 56-year-old male patient that presented to our ER today with complaints of neck pain about a week ago that has gotten progressively worse and shoulder pain. He did have bilateral numbness to the upper extremities, but he noticed over the last couple of days that he was getting in his right arm and then today he could barely lift his right leg off his bed. He did seek care at Urgent Care and the ER earlier this week. 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 However, the day he went for followup with his primary, he was found to be in AFib and because of the weakness on the right side, there was concern for stroke and he was sent to the ER. He was evaluated by myself and by Dr. Falcon, and there was concern that this could be stroke or could be other etiologies. It was noted that he had a white count of 14 and ESR 65 and a CRP of 251. He did spike a fever here and it was noted on initial imaging particularly the CTA of the head and neck which was done because there was concern for stroke, there did appear to be a focal pleural thickening at the base of the right anterior chest with edema, enlargement of the longus colli musculature bilaterally of unclear etiology. CT of the chest was recommended on that study and a CT of the chest was obtained which showed conflicts of findings concerning for myositis of the right first intercostal space anteriorly. This may represent contiguous inflammation with the deep soft tissues of the neck given appearance of the longus colli muscles. Refer to CT neck exam. Later tonight, he had an MRI of the cervical spine which ultimately showed a C5-6 osteomyelitis with cord compression and an epidural abscess and there was contiguous inflammation within the ligaments from C3 through T1 to T2. He underwent an MRI of the cervical spine because of his complaints, which ultimately showed osteomyelitis and diskitis at C5-6 and additional osteomyelitis at C7, the anterior and posterior epidural abscess with significant spinal cord compression, associated increased T2 signal with the cord which may secondary to compression or reflective of contiguous inflammation and infection involving the cord. Based on the correlation of the chest exam on the same date, there was contiguous extension of inflammatory process at the anterior chest wall with phlegmon and gas bubbles at the right first intercostal space. At this point, I was notified we did have Neurosurgery road monkey, Dr. Moreno from [facility], who I did call and he recommended transferring the patient down to [facility], so that he could first thing evaluate the patient tonight and possibly take him for a decompression. He did request at that point that I touch base with the hospitalist there, who accepted the patient. Ultimately, it was Dr. Cadet from [facility], and at this point, he was accepted. We will place the patient in a cervical collar. There was no acute fracture noted on the MRI. We will place him in cervical collar and head of the bed at 30 degrees and bed rest until he was evaluated. In the time being here though he did receive 4 L of IV fluids. He was on antibiotics. Blood cultures were sent and the patient again will be transferred under the care to [facility] per the recommendations of Neurosurgery road monkey, Dr. Moreno, and Dr. Cadet was the accepting hospitalist. PHYSICAL EXAMINATION: On transfer reveals vital signs, blood pressure 123/57 with a pulse of 82; respirations 18; his O2 sat was 91% on 2 L, he is now 96%; his temperature was 99.8. He appears to be in a rate controlled AFib. General : At this time, Mr. Shaw is a 56-year-old male patient. He is well-nourished , well- developed, does not appear to be in any acute distress. HEENT: Head atraumatic, normocephalic. Eyes: EOMs are intact. Sclerae anicteric, not pale. Throat: Oral mucosa appears to be moist. No oropharyngeal erythema. Neck: Supple. Lungs: Clear to auscultation. No wheezes, rales, or rhonchi. Heart: Sounds, S1, S2. Irregularly irregular rate. No murmurs, rubs, or gallops. Abdomen: Soft, flat, nontender. Bowel sounds are present. Extremities: Pulses 2+ throughout. He does have weakness noted to the right arm. He is considerably more weak than the left side. He can raise the arm on the right leg, though he has a significant amount of weakness. He can barely lift the leg off the bed but sensation is intact. No other focal deficits. DIAGNOSTIC STUDIES/LAB DATA: On discharge, WBC of 14.0, RBC of 3.94, hemoglobin 12.2, hematocrit of 37, and platelet count of 197. INR 1.48. His sodium was 136, potassium 3.0, chloride of 95, bicarb 35, BUN 22, creatinine 0.70, glucose of 112, lactate 1.2, calcium 8.9, mag 2.0. Total bili 1.3, AST 84 , ALT 132, alk phos 230. Troponin 0.02. His CRP was 251. Urine showed positive nitrites, trace leukocyte esterase, 1+ wbc's. He had multiple imaging here in our hospital starting out with CT of the brain showed no acute intracranial pathology. He had a head CTA which showed no aneurysm, vascular malformation, occlusion, or stenosis visualized in the intracranial circulation. No internal carotid artery stenosis by NASCET criteria. There is a focal pleural thickening of the right anterior chest with edema and enlargement of the longus colli musculature bilaterally. This is of unclear etiology but is incompletely evaluated on the current examination. Recommend further evaluation with CT of the chest. He had an abdominal ultrasound for the elevated LFTs which revealed small right pleural effusion and mild hepatomegaly, negative for gallbladder pathology or biliary dilatation. He had a brain MRI obtained today as well which revealed low burden of small nonspecific T2/FLAIR hyperdensities within the periventricular and subcortical white matter on the cerebral hemisphere which may be seen in the setting of migraine headaches or reflected previous inflammation or demyelinating disease in the appropriate clinical setting. Negative for abnormal intra or extra axial fluid collection or mass effect. Negative for acute or subacute ischemia. He did have a cervical spine MRI which showed incomplete MRI of the cervical spine remarkable for deep soft tissue infection on the neck, osteomyelitis, diskitis at C5-6 and probable addition of osteomyelitis at C7, anterior and posterior epidural abscess with significant spinal cord compression, associated T2 signal within the cord which may be secondary to compression or reflected contiguous infection involving the cord, contiguous inflammation within the interspinous ligaments from C2-3 through T1 and T2. No pathological fracture evident. Based on the correlation with CT chest exam the same day, there is contiguous extension of the inflammatory process to the right anterior chest wall with phlegmon and gas bubbles at the right first intercostal space. He did have a chest x-ray obtained today as well which showed mild increased density in the medial right upper lung zone corresponds with the region of the soft tissue swelling noted at the right first intercostal space on CT, right apical pleural thickening and he had a CT of the chest as well, which revealed constellation of findings. It is concerning for myositis at the right first intercostal space anteriorly. This may represent contiguous inflammation with the deep soft tissue of the neck given appearance of the longus colli muscle reference to the CT angio neck exam performed prior to this exam. Small dependent right and trace left pleural effusions with associated atelectasis. CONDITION ON TRANSFER: Stable. TIME SPENT: On the transfer was approximately 60 minutes, greater than half of the time was spent [id number] with the patient going over the transfer plan, other half time time spent coordinating the care. I did discuss the plan with my attending, Dr. Mcrae; he is in agreement. FRANCOIS DICKEY, KARO [id number]/[facility] #: [id number] KEVIN
[2017-04-04] MEDS ORDERED: Vancomycin(*) 1,000 MG in NS 0.9% 250 ML* 250 ML IVPB SCH (01:00)
[2017-04-04] MEDS ORDERED: Aspirin EC Low Dose* 81 MG TAB.EC PO SCH (09:00)
[2017-04-05] MEDS ORDERED: Vancomycin Trough Check NOTE FOLLOW UP ONE (08:30)
== END 2017-04-03 23:44 | disposition short-term general hospital (02) | DRG 49 ==
LOC: ED 12:40 → MEDTELE 15:09
PROVIDERS: ADMIT Hospitalist; ATTEND Hospitalist
DX: G06.1 Intraspinal abscess and granuloma (principal); M46.22 Osteomyelitis of vertebra, cervical region; J90 Pleural effusion, not elsewhere classified; I48.91 Unspecified atrial fibrillation; G95.29 Other cord compression; R16.0 Hepatomegaly, not elsewhere classified; J98.11 Atelectasis; F17.210 Nicotine dependence, cigarettes, uncomplicated; E87.6 Hypokalemia; R79.89 Other specified abnormal findings of blood chemistry; J92.9 Pleural plaque without asbestos; M46.42 Discitis, unspecified, cervical region; Z82.3 Family history of stroke; Z80.6 Family history of leukemia; Z82.49 Family history of ischemic heart disease and other diseases of the circulatory system; Z83.3 Family history of diabetes mellitus; Z82.0 Family history of epilepsy and other diseases of the nervous system
CPT/HCPCS: 36415; 70450; 70496; 70498; 70551; 71010; 71250; 72141; 76705; 80053; 80061; 81003; 81015; 83605; 83735; 84443; 84484; 85025; 85610; 85652; 86140; 87040; 87077; 87150; 87186; 87205; 93005; A9270-GY; J0696; J2270; J3370; J3480

== ENCOUNTER 2018-08-18 12:41 | Observation (INO) | payer OTHER ==
[2018-08-18] MEDS ORDERED: Clindamycin 600 MG IVPREMIX(* 600 MG/50 ML SDV IV ONE (13:15)
--- NOTE | 2018-08-18 13:18 | ED ---
Throat Pain/Nasal Congestion - HPI Summary HPI Summary: The pt is a 58 y/o male presenting to [facility] c/o L jaw pain for 2 weeks worsened 2 days ago. He notes dental pain (for 2 weeks), dysphagia (since 1 day ago), difficulty opening his mouth, a swollen L nodule under the L jaw, and sore throat. He denies fevers, neck pain, and ear pain. The pt saw his dentist 6 day ago and had an X-ray performed. The pain is rated 8/10 in severity. - History of Current Complaint Chief Complaint: EDDentalPain Time Seen by Provider: 08/18/18 13:05 Hx Obtained From: Patient Onset/Duration: Lasting Weeks - 2 weeks, Still Present, Worse Since - 2 days ago Severity: Severe Associated Signs And Symptoms: Positive: Dysphagia - Allergies/Home Medications Allergies/Adverse Reactions: Allergies Allergy/AdvReac Type Severity Reaction Status Date / Time No Known Allergies Allergy Verified 08/18/18 09:49 Home Medications: Home Medications Felodipine (NF) [Plendil (NF)] 5 mg PO DAILY 08/18/18 [History Confirmed ] Ramipril CAP* [Altace CAP*] 5 mg PO DAILY 08/18/18 [History Confirmed 08/18/18] PMH/Surg Hx/FS Hx/Imm Hx Previously Healthy: No - Mhx of sepsis requiring hospitalization Endocrine/Hematology History: Denies: Hx Diabetes Cardiovascular History: Denies: Hx Coronary Artery Disease, Hx Hypertension, Hx Pacemaker/ICD Sensory History: Denies: Hx Contacts or Glasses, Hx Legally Blind, Hx Deafness, Hx Hearing Aid Opthamlomology History: Denies: Hx Contacts or Glasses, Hx Legally Blind Psychiatric History: Denies: Hx Panic Disorder - Cancer History Cancer Type, Location and Year: None reported - Surgical History Surgery Procedure, Year, and Place: HYDROCELE, HERNIA REPAIR AT AGE 3 Infectious Disease History: No Infectious Disease History: Denies: History Other Infectious Disease, Traveled Outside the [place] in Last 30 Days - Family History Known Family History: Positive: Other - NONCONTRIBUTORY Negative: Cardiac Disease - Social History Occupation: Employed Full-time Lives: Dormitory/Roommates - Significant other Alcohol Use: None Alcohol Amount: none in 25 years Substance Use Type: Reports: None Smoking Status (MU): Current Every Day Smoker Type: Cigarettes Amount Used/How Often: 4-5 CIG/DAY Review of Systems Negative: Fever ENT: Negative - Neck pain Positive: Dental Pain, Sore Throat, Other - Positive: dysphagia (since 1 day ago ), difficulty opening his mouth, a swollen L nodule under the L jaw. Negative: Ear Ache All Other Systems Reviewed And Are Negative: Yes Physical Exam - Summary Physical Exam Summary: Appearance: Well-appearing, Well-nourished, lying in bed comfortable Skin: Warm, dry, no obvious rash Eyes: sclera anicteric, no conjunctival pallor ENT: mucous membranes moist, No deformations of the gum line, Firm mass in the L submandibular space Neck: deferred Respiratory: No signs of respiratory distress Cardiovascular: Appears well perfused, pulses are nml Abdomen: deferred Musculoskeletal: Moving all 4 extremities without obvious discomfort Neurological: Awake and alert, mentation is normal, speech is fluent and appropriate Psychiatric: affect is normal, does not appear anxious or depressed Triage Information Reviewed: Yes Vital Signs On Initial Exam: Initial Vitals Temp Pulse Resp BP Pulse Ox 98.6 F 68 15 151/82 97 08/18/18 12:45 08/18/18 12:45 08/18/18 12:45 08/18/18 12:45 08/18/18 12:45 Vital Signs Reviewed: Yes Diagnostics - Vital Signs Vital Signs Temp Pulse Resp BP Pulse Ox 08/18/18 12:45 98.6 F 68 15 151/82 97 - Laboratory Result Diagrams: 08/20/18 07:49 08/19/18 06:00 Lab Statement: Any lab studies that have been ordered have been reviewed, and results considered in the medical decision making process. - CT Nect CT CT Interpretation Completed By: Radiologist - IMPRESSION: CT findings are consistent with phlegm on and early abscess formation in the soft tissues along the medial margin of the left mandible with mild left-sided upper cervical chain lymphadenopathy. Please correlate to direct visualization. The ED physician reviewed this radiology report. Re-Evaluation - Re-Evaluation Second Eval Re-Evaluation Time: 16:05 Change: Unchanged EENT Course/Dx - Course Course Of Treatment: A 58 year-old M presents to the ED with a CC of L jaw pain for 2 weeks worsened 2 days ago. He notes dental pain (for 2 weeks), dysphagia ( since 1 day ago), difficulty opening his mouth, a swollen L nodule under the L jaw, and sore throat. He denies fevers, neck pain, and ear pain. A physical exam revealed no deformation in the gum line and a firm mass in the L submandibular space. A neck CT reveals with phlegm on and early abscess formation in the soft tissues along the medial margin of the left mandible with mild left-sided upper cervical chain lymphadenopathy. In the ED course, pt was given Clindamycin 600 mg in 50 ml IV, Iohexol 300 mg in 50 ml IV and Ketorolac 10 mg IV which improved the symptoms. At this point, the patient does not require surgery but rather IV antibiotics. I discussed the care of the hospitalist who agreed to admit the pt for further pain control and IV antibiotics, understanding that the patient couldn't requiring transfer to Center with oral surgery capabilities if he does not improve. Pt is agreeable with this plan. Allergies noted. - Diagnoses Provider Diagnoses: Dental abscess, Odontogenic infection of jaw - Provider Notifications Discussed Care Of Patient With: Adele Lopez - Hospitalist Time Discussed With Above Provider: 16:01 Instructed by Provider To: Admit As Inpatient Discharge - Sign-Out/Discharge Documenting (check all that apply): Patient Departure - Admit - Discharge Plan Condition: Good Disposition: ADMITTED TO [facility] - Billing Disposition and Condition Condition: GOOD Disposition: Admitted to [facility] - Attestation Statements Document Initiated by Cameron: Yes Documenting Scribe: Gladys Flores Provider For Whom Cameron is Documenting (Include Credential): Dr. Damaso Monaco MD Scribe Attestation: Gladys Lamar , scribed for Dr. Damaso Monaco MD on 08/20/18 at 2251. Scribe Documentation Reviewed: Yes Provider Attestation: The documentation as recorded by the Gladys german accurately reflects the service I personally performed and the decisions made by me, Dr. Damaso Monaco MD
[2018-08-18 13:43] LABS: ABS Basophils 0.1 10^3/ul (0-0.2); ABS Eosinophils 0 10^3/ul (0-0.6); ABS Lymphocytes 1.5 10^3/ul (1.0-4.8); ABS Monocytes 1.5 10^3/ul (0-0.8); ABS Neutrophils 11.3 10^3/ul (1.5-7.7); ABS Nucleated RBC 0 10^3/ul; Eosinophil % 0.3 % (0-6); Hematocrit 38 % (42-52); Hemoglobin 12.9 g/dl (14.0-18.0); Lymphocyte % 10.5 % (25-47); Mean Corpuscular HGB Conc 34 g/dl (31-36); Mean Corpuscular Hemoglobin 32 pg (27-31); Mean Corpuscular Volume 93 fL (80-94); Mean Platelet Volume 8.5 fL (7.4-10.4); Nucleated Red Blood Cells % 0; Platelet Count 227 10^3/ul (150-450); Red Blood Count 4.06 10^6/ul (4.00-5.40); Red Cell Distribution Width 12 % (10.5-15); White Blood Count 14.5 10^3/ul (3.5-10.8)
[2018-08-18] MEDS ORDERED: Ketorolac INJ* 30 MG/ML 1 ML VIAL IV PUSH ONE (13:51)
[2018-08-18 14:06] LABS: EGFR Non-African American 107.9 (>60)
[2018-08-18] MEDS ORDERED: Iohexol 300* (CONTRAST) 10 ML SDV IV ONE (14:37)
[2018-08-18] MEDS ORDERED: Ondansetron INJ* 2 MG/ML VIAL IV PRN (17:06)
[2018-08-18] MEDS ORDERED: Ibuprofen ADULT LIQ* 600 MG/30 ML UDC PO PRN (17:06)
[2018-08-18 18:11] LABS: INR 1.29 (0.77-1.02)
[2018-08-18] MEDS: NS 0.9% 1000 ML* 1,000 ML IV SCH (18:23)
[2018-08-18] MEDS: Acetaminophen ADULT LIQ* 650 MG/20.3 ML UDC PO PRN (19:49)
[2018-08-18] MEDS: Clindamycin 600 MG IVPREMIX(* 600 MG/50 ML SDV IV SCH (20:46)
[2018-08-18] MEDS: Heparin VIAL(*) 5000 UNITS/ML VIAL (FIVE THOUSAND) SUBCUT SCH (20:46)
--- NOTE | 2018-08-18 20:50 | HP ---
HISTORY AND PHYSICAL: DATE OF ADMISSION: 08/18/18 PRIMARY CARE PROVIDER: None. ATTENDING PHYSICIAN WHILE IN THE HOSPITAL: Adele Alfaro MD * (report dictated by Christiano Multani NP). CHIEF COMPLAINT: Dental pain. HISTORY OF PRESENT ILLNESS: Mr. Shaw is a 58-year-old male patient. He has a known history of hypertension. He has had a history in the past of diskitis, osteomyelitis, and epidural abscess in 2017. He was transferred to [facility] for further evaluation and care. He is presenting today because he basically had a 2- week history and he is noticing that he was having intermittent pain in his back, wisdom tooth on the left maxilla. He says that the pain was intermittent, it was going on. Initially, he had 1 episode that lasted a couple days. He took some NSAIDs and the pain went away. He was feeling better , but then it came back and because it had come back early in the middle of the last week around Thursday, he went to his dentist, he was started on penicillin. He said initially it helped, but then with the fourth day of treatment, he was getting pain again. He started noticing that he was getting swelling last night and today underneath the left jaw. It was tender, sore, warm. He felt chills, but he had no known fevers. He was concerned because he said it hurts to open up his jaw, he had a hard time eating a banana today and any time he put any pressure down on the tooth on the left side, he had a significant amount of pain, so he thought maybe he would possibly need IV antibiotics, so he came into Urgent Care originally and then he was sent here. He denies having any chest pain or shortness of breath. He denied having any again fevers. He says that he is not drooling and he is not having any trouble swallowing or trouble breathing. He says it just hurts. He is tender along the maxilla on the left side. He came in, he was evaluated. He was noted to have a white count, CT showed a possible early abscess or phlegmon, and we were asked to evaluate for admission. PAST MEDICAL HISTORY: Significant for: 1. Hypertension. 2. He has had a history of cervical radiculopathy secondary to osteomyelitis and diskitis of the cervical spine with epidural abscess. PAST SURGICAL HISTORY: He has had hernia repair and hydrocele repair. HOME MEDICATIONS: Include: 1. Ramipril 5 mg daily. 2. Felodipine 5 mg daily. 3. Naproxen 220 mg p.o. b.i.d. ALLERGIES TO MEDICATIONS: Include no known drug allergies. FAMILY HISTORY: His mother had leukemia. Father has dementia, but is still alive and is doing well according to him. SOCIAL HISTORY: He is a former smoker. He does not drink alcohol. Surrogate decision maker is his Yarely leiva. REVIEW OF SYSTEMS: There is no documented fever. He did admit to having chills. There is no significant weight change. He denied having any double vision. There is no ear discharge. He denied having any rhinorrhea. There is no sore throat. No thyroid enlargement. Denies having any chest pain. There was no orthopnea. There was no nocturnal dyspnea. He denies having any no abdominal pain. There was no nausea, no vomiting. There was no dysuria. There was no frequency. No seizure. There is no loss of consciousness. No pruritus and no skin ulcerations. Review of 14 systems was completed, all others negative. PHYSICAL EXAMINATION GENERAL: At this time, Mr. Shaw is a 58-year-old male patient. He is sitting in the ED stretcher. He does not appear to be in any acute distress. He appears to be well nourished and well developed. VITAL SIGNS: Blood pressure 151/82 with a pulse of 68, respirations 15, O2 sat 97%, temperature 98.6. HEENT: Head: Atraumatic and normocephalic. Eyes: EOMs intact. Sclerae anicteric and not pale. Throat: Oral mucosa appears to be moist. No oropharyngeal erythema. He had tenderness along the left mandible. He had erythema and warmth. Looking in his mouth, you can definitely see a dental cavity and caries to the back wisdom tooth. NECK: Supple. LUNGS: Clear to auscultation bilaterally. There were no wheezes, rales, or rhonchi. HEART: Sounds S1, S2. Regular rate and rhythm. No murmurs, rubs, or gallops. ABDOMEN: Soft. It was flat, nontender. Bowel sounds were present. EXTREMITIES: Pulses were 2+ throughout. He is moving all 4 extremities with 5/ 5 strength. NEUROLOGIC: The patient is awake. He is alert. He is oriented x3. No gross focal deficits. SKIN: Grossly intact. DIAGNOSTIC STUDIES/LAB DATA: WBC of 14.5, RBC of 4.06, hemoglobin of 12.9, hematocrit 38, platelet count 227. Sodium 139, potassium 3.7, chloride of 101, bicarb 31, BUN 18, creatinine of 0.74, glucose 115, lactic 0.6, calcium 9.2. He had a neck CT obtained today, which revealed CT findings were consistent with phlegmon and early abscess formation in the soft tissues along the medial margin of the left mandible with mild left-sided upper cervical chain without lymphadenopathy. Old medical records were reviewed. ASSESSMENT AND PLAN: Mr. Shaw is a 58-year-old male patient coming into the ED today with complaints of swelling along his jawline on the left side with pain and discomfort in the setting of having dental cavity. He has had intermittent pain for the last couple weeks. On evaluation today, there was concern for possible early abscess. He will be admitted under observation status for: 1. Dental abscess. At this point, I will start the patient on clindamycin. We will check blood cultures, hydrate the patient. I have ordered p.r.n. Tylenol and ibuprofen for pain and we will continue to monitor him. 2. Hypertension. Continue meds as prescribed. 3. History of cervical radiculopathy. He has no deficits now from his previous diskitis and epidural abscesses, so at this point, not an active issue. 4. DVT prophylaxis: He will actually be placed on heparin subcu. 5. Code status: Full code. 6. Fluids, electrolytes, and nutrition: He will have a regular soft diet. TIME SPENT: Time spent on the admission was 60 minutes, greater than half of the time was spent [id number] with the patient obtaining my history and physical, other half of the time was spent going over the plan of care with the patient and implementing plan of care. I did discuss the plan of care with my attending, Dr. Alfaro; she is in agreement. CHRISTIANO MULTANI NP [id number]/[facility] #: [id number] KEVIN
[2018-08-18] MEDS ORDERED: traMADol TAB* 50 MG PO ONE (22:15)
[2018-08-18] MEDS ORDERED: traMADol TAB* 50 MG ONE (22:21)
[2018-08-19] MEDS: NS 0.9% 1000 ML* 1,000 ML IV SCH ×2 (04:08→16:52)
[2018-08-19] MEDS: Clindamycin 600 MG IVPREMIX(* 600 MG/50 ML SDV IV SCH ×3 (05:58→21:02)
[2018-08-19] MEDS: Heparin VIAL(*) 5000 UNITS/ML VIAL (FIVE THOUSAND) SUBCUT SCH ×3 (05:58→21:02)
[2018-08-19] MEDS: Ketorolac INJ* 15 MG/ML 1 ML VIAL IV PUSH PRN ×3 (06:02→21:02)
[2018-08-19 06:32] LABS: Hematocrit 35 % (42-52); Mean Corpuscular HGB Conc 34 g/dl (31-36); Mean Corpuscular Hemoglobin 31 pg (27-31); Mean Corpuscular Volume 92 fL (80-94); Mean Platelet Volume 8.9 fL (7.4-10.4); Platelet Count 186 10^3/ul (150-450); Red Blood Count 3.81 10^6/ul (4.00-5.40); Red Cell Distribution Width 12 % (10.5-15); White Blood Count 14.2 10^3/ul (3.5-10.8)
[2018-08-19 06:42] LABS: INR 1.3 (0.77-1.02)
[2018-08-19 07:00] LABS: EGFR Non-African American 123.1 (>60)
[2018-08-19 07:32] LABS: ABS Basophils 0 10^3/ul (0-0.2); ABS Eosinophils 0.1 10^3/ul (0-0.6); ABS Monocytes 1.8 10^3/ul (0-0.8); ABS Neutrophils 10.3 10^3/ul (1.5-7.7); ABS Nucleated RBC 0 10^3/ul; Eosinophil % 0.6 % (0-6); Lymphocyte % 14.1 % (25-47); Nucleated Red Blood Cells % 0
[2018-08-19] MEDS: Ramipril CAP* 5 MG PO SCH (09:14)
[2018-08-19] MEDS: amLODIPine TAB* 5 MG PO SCH (09:15)
[2018-08-19] MEDS: Acetaminophen ADULT LIQ* 650 MG/20.3 ML UDC PO PRN ×2 (11:07→16:52)
--- NOTE | 2018-08-19 17:05 | PN ---
Subjective Date of Service: 08/19/18 Interval History: Mr. Shaw is feeling better today. He reports that the swelling to his left jaw has decreased significantly. He is not having trouble breathing or swallowing, but feels as though his uvula is long and he can feel it moving when he swallows. No difficulty chewing or moving his neck. He denies CP, SOB, N/V/D, dizziness. Family History: Unchanged from Admission Social History: Unchanged from Admission Past Medical History: Unchanged from Admission Objective Active Medications: Acetaminophen (Tylenol Adult Liq*) 650 mg PO Q6H PRN Amlodipine Besylate (Norvasc Tab*) 5 mg PO DAILY ANDREW; Protocol Heparin Sodium (Porcine) (Heparin Vial(*)) 5,000 units SUBCUT Q8HR ANDREW Clindamycin HCl/Dextrose (Cleocin 600 Mg Ivpremix(*) Sdv) 600 mg in 50 mls @ 100 mls/hr IV Q8H ANDREW Sodium Chloride (Ns 0.9% 1000 Ml*) 1,000 mls @ 100 mls/hr IV PER RATE ANDREW Ketorolac Tromethamine (Toradol Inj*) 15 mg IV PUSH Q6H PRN Ondansetron HCl (Zofran Inj*) 4 mg IV Q6H PRN Ramipril (Altace Cap*) 5 mg PO DAILY [facility] Vital Signs - 8 hr 08/19/18 08/19/18 11:38 13:56 Temperature 99.8 F 99.9 F Pulse Rate 67 71 Respiratory 16 17 Rate Blood Pressure 126/60 126/66 (mmHg) O2 Sat by Pulse 96 97 Oximetry Oxygen Devices in Use Now: None Appearance: Middle-aged male sitting in bed in NAD Eyes: No Scleral Icterus Ears/Nose/Mouth/Throat: Mucous Membranes Moist, - - Edema and erythema to left jaw and neck Neck: NL Appearance and Movements; NL JVP Respiratory: Symmetrical Chest Expansion and Respiratory Effort, Clear to Auscultation Cardiovascular: NL Sounds; No Murmurs; No JVD, RRR Abdominal: NL Sounds; No Tenderness; No Distention Neurological: Alert and Oriented x 3 Lines/Tubes/Other Access: Clean, Dry and Intact Peripheral IV Nutrition: Taking PO's Result Diagrams: 08/19/18 06:01 08/19/18 06:00 Assess/Plan/Problems-Billing Assessment: Mr. Shaw is a 58yo with PMH of HTN who presented to the ED with c/o dental pain and facial swelling and was found to have a left dental abscess. - Patient Problems (1) Dental abscess Current Visit: Yes Status: Acute Code(s): K04.7 - PERIAPICAL ABSCESS WITHOUT SINUS SNOMED Code(s): 955536727 Comment: - Continue leukocytosis, but clinically improving - Continue clindamycin (2) HTN (hypertension) Current Visit: Yes Status: Acute Code(s): I10 - ESSENTIAL (PRIMARY) HYPERTENSION SNOMED Code(s): 50468427 Comment: - Normotensive - Continue amlodipine (3) DVT prophylaxis Current Visit: Yes Status: Acute Code(s): DSB3417 - SNOMED Code(s): 579805404 Comment: - Heparin SQ (4) Full code status Current Visit: Yes Status: Acute Code(s): Z78.9 - OTHER SPECIFIED HEALTH STATUS SNOMED Code(s): 277532264 Status and Disposition: Observation. Anticipate d/c home when medically stable, likely tomorrow. Attending: Marycarmen Chavarria
[2018-08-20] MEDS: Acetaminophen ADULT LIQ* 650 MG/20.3 ML UDC PO PRN (01:01)
[2018-08-20] MEDS: Clindamycin 600 MG IVPREMIX(* 600 MG/50 ML SDV IV SCH (05:18)
[2018-08-20] MEDS: Heparin VIAL(*) 5000 UNITS/ML VIAL (FIVE THOUSAND) SUBCUT SCH (05:18)
[2018-08-20 06:46] VITALS: BP 101/61
[2018-08-20 08:07] LABS: ABS Basophils 0 10^3/ul (0-0.2); ABS Eosinophils 0.1 10^3/ul (0-0.6); ABS Lymphocytes 2.5 10^3/ul (1.0-4.8); ABS Monocytes 1.5 10^3/ul (0-0.8); ABS Nucleated RBC 0 10^3/ul; Eosinophil % 0.6 % (0-6); Hematocrit 32 % (42-52); Hemoglobin 11.1 g/dl (14.0-18.0); Lymphocyte % 20.9 % (25-47); Mean Corpuscular HGB Conc 35 g/dl (31-36); Mean Corpuscular Hemoglobin 32 pg (27-31); Mean Corpuscular Volume 91 fL (80-94); Mean Platelet Volume 8.6 fL (7.4-10.4); Nucleated Red Blood Cells % 0; Platelet Count 201 10^3/ul (150-450); Red Blood Count 3.53 10^6/ul (4.00-5.40); Red Cell Distribution Width 12 % (10.5-15); White Blood Count 12.2 10^3/ul (3.5-10.8)
[2018-08-20] MEDS: Ramipril CAP* 5 MG PO SCH (08:32)
[2018-08-20] MEDS: amLODIPine TAB* 5 MG PO SCH (08:32)
--- NOTE | 2018-08-21 12:12 | DS ---
CC: ALFONZO Perdomo * DISCHARGE SUMMARY: DATE OF ADMISSION: 08/18/18 DATE OF DISCHARGE: 08/20/18 PRIMARY CARE PROVIDER: ALFONZO Perdomo ATTENDING PHYSICIAN: Dr. Adele Alfaro * (dictated by Angle Gifford NP). PRIMARY DIAGNOSIS: Dental abscess. SECONDARY DIAGNOSIS: Hypertension. STUDIES WHILE IN THE HOSPITAL: Neck CT on 08/18/[address] findings are consistent with phlegmon and early abscess formation in the soft tissues along the medial margin of the left mandible with mild left-sided upper cervical chain lymphadenopathy. HISTORY OF PRESENT ILLNESS AND HOSPITAL COURSE: Mr. Shaw is a 58-year-old male with past medical history of hypertension, who presented to the emergency room on 08/18/18 with complaints of dental pain and facial swelling. Please see the history and physical by Christiano Multani NP, for complete summary of the events leading up to this hospitalization. In short, the patient has been having intermittent pain on his left upper wisdom tooth. He had seen his dentist within the last week, who started him on a course of penicillin. Patient reported that the swelling initially was getting better though started to become worse and he developed severe left jaw pain with facial swelling and chills. He was having some difficulty eating due to his inability to chew. As noted above, the neck CT in the emergency room was indicative of an abscess. The hospitalist service admitted him for a dental abscess. The patient was started on clindamycin IV. Initially, his white blood count was 14.5. Labs were otherwise mostly unremarkable. Ultimately, he had negative blood cultures. Vital signs remained stable. He was not febrile or tachycardic. His pain was managed with Toradol and Tylenol. Blood pressure remained stable and he was continued on amlodipine in substitution for his felodipine. Ramipril was held. The edema became progressively better. As of the day of discharge, the patient reported feeling much better. His pain was essentially resolved and the edema was significantly reduced from admission. He was having no problems chewing or swallowing. Mr. Shaw is stable for discharge today. Vital signs are as follows: Temp 97.8 , heart rate 60, respiratory rate 16, oxygen saturation 98% on room air, blood pressure 101/61. DISCHARGE MEDICATIONS: New home medication: 1. Clindamycin 300 mg p.o. t.i.d. x5 days. Continued home medications: 1. Felodipine 5 mg p.o. daily. 2. Naproxen 220 mg p.o. b.i.d. 3. Ramipril 5 mg p.o. daily. Discontinued home medication: Penicillin. DISCHARGE PLAN: Mr. Shaw will be discharged to home. Activity will be as tolerated. Diet will be regular as tolerated. Medications are noted above. The patient has been prescribed a 5-day course of clindamycin to complete a total of 7 days of antibiotics therapy. He should discontinue his penicillin previously prescribed. He can continue his other home medications. He will need to follow up with his dentist early next week for further evaluation of the troublesome tooth. He will also need to follow up with his primary care provider in the next 4 to 7 days. He is instructed to return to the emergency room or nearest hospital for any worsening of symptoms, shortness of breath, lightheadedness, dizziness chest discomfort, high fevers, chills, night sweats, loss of consciousness, or any other worrisome signs or symptoms. This is a summarized report of a complex medical history and hospital stay. For further details, please see the entire medical record. TIME SPENT: Approximately 40 minutes were spent on this discharge. Greater than half of that time spent [id number] with the patient discussing discharge plans and instructions. ANGLE GIFFORD, KARO [id number]/[facility] #: [id number] KEVIN
== END 2018-08-20 11:20 | disposition home or self-care (01) ==
LOC: ED 12:41 → MED 16:58
PROVIDERS: ADMIT Internal Medicine; ATTEND Internal Medicine
DX: K04.7 Periapical abscess without sinus (principal); I10 Essential (primary) hypertension; R68.84 Jaw pain; J02.9 Acute pharyngitis, unspecified; F17.210 Nicotine dependence, cigarettes, uncomplicated
CPT/HCPCS: 36415; 70491; 80048; 83605; 85025; 85610; 85730; 86140; 87040; 96361; 96365; 96366; 96367; 96375; 99282; A9270-GY; G0378; J1644; J1885; Q9967